=== PATIENT | male | born 1965 | race Caucasian/White ===

== ENCOUNTER 2017-09-25 12:05 | Emergency (ER) | payer SELFPAY ==
[2017-09-25 12:11] VITALS: BP 118/78; PULSE 88; RESP 18
--- NOTE | 2017-09-25 12:26 | PD ---
HPI Chief Complaint: Fall Time Seen by Provider: 12:19 Travel History International Travel<30 days: No Contact w/Intl Traveler<30days: No Traveled to known affect area: No History of Present Illness HPI This patient had several alcoholic drinks today and when he got out of a pickup truck he stumbled and lost balance and fell and struck the back of his head on the ground. His history and review of systems is quite limited due to his intoxication. He is not cooperative with history or exam. Unknown LOC PFSH Past Medical History ?: Not Social History Alcohol Use: Yes Tobacco Use: Yes Substance Use: No Review of Systems ROS Limitations: Clinical Condition, Intoxication, Uncooperative, Poor Historian Physical Exam Narrative GENERAL: Well-nourished, well-developed patient in no apparent distress. SKIN: Focused skin assessment reveals no rash and nodules. Skin is Warm and dry. HEAD: Patient has 2 parallel lacerations to the upper occiput. Normocephalic. EYES: Pupils equal and round. No scleral icterus. No injection or drainage. ENT: No nasal bleeding or discharge. Mucous membranes pink and moist. NECK: Trachea midline. No JVD. C-collar maintained CARDIOVASCULAR: Regular rate and rhythm. No murmur appreciated. RESPIRATORY: No accessory muscle use. Clear to auscultation. Breath sounds equal bilaterally. GASTROINTESTINAL: Abdomen soft, non-tender, nondistended. Hepatic and splenic margins not palpable. MUSCULOSKELETAL: No obvious deformities. No clubbing. No cyanosis. No edema. NEUROLOGICAL: Awake and alert. No obvious cranial nerve deficits. Motor grossly within normal limits. Normal speech. PSYCHIATRIC: Appropriate mood and affect; insight and judgment poor Data Data Last Documented VS Vital Signs Date Time Temp Pulse Resp B/P (MAP) Pulse Ox O2 Delivery O2 Flow Rate FiO2 09/25/17 12:20 18 99 Room Air 09/25/17 12:11 88 118/78 (91) Orders Orders Ct Brain W/O Iv Contrast(Rout) (09/25/17 ) Ct Cerv Spine W/O Contrast (09/25/17 ) MDM Medical Decision Making Medical Screen Exam Complete: Yes Emergency Medical Condition: Yes Medical Record Reviewed: Yes Differential Diagnosis Intracranial hemorrhage, concussion, skull fracture Narrative Course I have reviewed the patient's electronic medical record. Brain CT is normal Cervical spine CT showed degenerative changes noted by radiologist but no traumatic injury or fracture Laceration of the scalp repaired as below Patient was given proper time to sober up and when he can walk and talk properly he'll be stable for outpatient follow-up. Recommend staple removal in 10 days Procedures Procedure Narrative LACERATION LOCATION: Occipital scalp LENGTH: 3 cm NUMBER OF STITCHES/WALTER: 6 walter REPAIR: The area of the laceration was prepped with Betadine and sterilely draped. No anesthesia required, he is quite intoxicated . The wound was copiously irrigated and explored without evidence of foreign body, tendon injury or neurovascular injury. The wound was closed using walter in a single layer fashion. Repair was challenging because this is a macerated mess rather than linear laceration. I brought it together as best as possible. Patient tolerated the procedure well. Diagnosis Primary Impression: Head injury due to trauma Qualified Codes: S09.90XA - Unspecified injury of head, initial encounter Additional Impressions: Occipital scalp laceration Qualified Codes: S01.01XA - Laceration without foreign body of scalp, initial encounter Degenerative joint disease of cervical spine Qualified Codes: M47.812 - Spondylosis without myelopathy or radiculopathy, cervical region Alcohol intoxication Qualified Codes: F10.929 - Alcohol use, unspecified with intoxication, unspecified Additional Instructions: The patient was advised to follow up with their physician and return if they worsen. Stop drinking excessively Roy out in 10 days Med/Other Pt SpecificInfo: Other Disposition: 01 DISCHARGE HOME Condition: Stable Patricio Nichole MD Sep 25, 2017 12:26
--- NOTE | 2017-09-25 14:16 | RADRPT ---
EXAM DATE/TIME: 09/25/2017 13:31 [facility] COMPARISON: No previous studies available for comparison. INDICATIONS : Fell getting out of his truck.Laceration to back of head. RADIATION DOSE: 69.15 CTDIvol (mGy) MEDICAL HISTORY : ETOH SURGICAL HISTORY : None. ENCOUNTER: Initial ACUITY: 1 day PAIN SCALE: 0/10 LOCATION: occipital TECHNIQUE: Multiple contiguous axial images were obtained of the head. Using automated exposure control and adj ustment of the mA and/or kV according to patient size, radiation dose was kept as low as reasonably a chievable to obtain optimal diagnostic quality images. DICOM format image data is available electro nically for review and comparison. FINDINGS: There is no evidence for intracranial hemorrhage, mass effect, mass lesions, edema, or extra-axial fl uid collections. The visualized bony structures appear intact. The ventricles are normal size for t he patient's age. There are no signs of acute infarction for technique. There is mild mucoperiosteal thickening within the left maxillary sinus. CONCLUSION: Unremarkable study except for chronic sinusitis. Justus Amaya MD on September 25, 2017 at 14:12 Board Certified Radiologist. This report was verified electronically.
--- NOTE | 2017-09-25 14:22 | RADRPT ---
EXAM DATE/TIME: 09/25/2017 13:34 [facility] COMPARISON: No previous studies available for comparison. INDICATIONS : Fell getting out of his truck. RADIATION DOSE: 25.65 CTDIvol (mGy) MEDICAL HISTORY : ETOH SURGICAL HISTORY : None. ENCOUNTER: Initial ACUITY: 1 day PAIN SCALE: 0/10 LOCATION: neck TECHNIQUE: Volumetric scanning of the cervical spine was performed. Multiplanar reconstructions in the sagittal, coronal and oblique axial planes were performed. Using automated exposure control and adjustment o f the mA and/or kV according to patient size, radiation dose was kept as low as reasonably achievable to obtain optimal diagnostic quality images. DICOM format image data is available electronically f or review and comparison. FINDINGS: No significant subluxation or soft tissue swelling is seen. No definite fracture is seen for techniqu e. C2-C3: No appreciable compromised to the thecal sac, exiting nerve roots are seen. The neural rush eleno are patent bilaterally. No appreciable thecal sac stenosis is seen. C3-C4: No appreciable compromised to the thecal sac, exiting nerve roots are seen. The neural rush eleno are patent bilaterally. No appreciable thecal sac stenosis is seen. C4-C5: Slight degenerative changes are seen within the disc space and facets. There is slight neural foramina compromise bilaterally due to bulging disc and hypertrophic changes. Slight bulging disc and hypertrophic changes are seen with indentation on the thecal sac and no significant compromise to th e thecal sac. C5-C6: No appreciable compromised to the thecal sac, exiting nerve roots are seen. The neural rush eleno are patent bilaterally. No appreciable thecal sac stenosis is seen. C6-C7: No appreciable compromised to the thecal sac, exiting nerve roots are seen. The neural rush eleno are patent bilaterally. No appreciable thecal sac stenosis is seen. C7-T1: No appreciable compromised to the thecal sac, exiting nerve roots are seen. The neural rush eleno are patent bilaterally. No appreciable thecal sac stenosis is seen CONCLUSION: Slight neural foramina compromise bilaterally C4-5. Justus Amaya MD on September 25, 2017 at 14:14 Board Certified Radiologist. This report was verified electronically.
== END 2017-09-25 15:09 | disposition home or self-care (01) ==
LOC: NEPD 12:05
DX: S09.90XA Unspecified injury of head, initial encounter (principal); S01.01XA Laceration without foreign body of scalp, initial encounter; M47.9 Spondylosis, unspecified; F10.129 Alcohol abuse with intoxication, unspecified; J32.9 Chronic sinusitis, unspecified; V89.9XXA Person injured in unspecified vehicle accident, initial encounter; Z72.0 Tobacco use
CPT/HCPCS: 12002; 70450; 72125